=== PATIENT | female | born 1970 | race Caucasian/White ===

== ENCOUNTER → 2017-03-07 | Day surgery (SDC) | payer OTHER ==
[~2017-03-07] MED LIST: LIDOCAINE 2% INJ (20 MG/ML) 20 ML MDV ONE
--- NOTE | 2017-03-14 13:22 | WOMENS IMAGING REPORT ---
EXAM DESCRIPTION: U/S BREAST BX; U/S BREAST BX EACH ADDT'L; RIGHT DIG DX MAMMO NO CHG COMPLETED DATE/TIME: 03/07/2017 2:27 pm; 03/07/2017 2:19 pm REASON FOR STUDY: UNSPECIFIED LUMP; N63.11; SECOND BX SITE N63.11; N63.11 S/P RT US BX FOR CLIP PLAC EMENT N63.11 UNSPECIFIED LUMP IN THE RIGHT BREAST, UPPER OUTER CANDY COMPARISON: Outside mammograms and ultrasound 02/14/2017 TECHNIQUE: The procedure was discussed with the patient and the patient agreed to proceed. There ar e two areas of concern are identified at ultrasound, an ill-defined mass with acoustic absorption at the 9 to 10 o'clock position, 2 cm in size, and a second area of concern in the right breast 12 o'gerri ck position with ill-defined sonographic mass with acoustic absorption about 1 cm in size. Right breast 9 to 10 o'clock position: The patient was scanned and the area of interest in the right lower outer quadrant 9 to 10 o'clock po sition was localized. This correlates with the area of concern on prior imaging studies. This area w as targeted for ultrasound-guided core biopsy. After sterile skin prep and 2.5 mL local lidocaine 1% for skin and deep tissue anesthesia, a 14 gauge coaxial core biopsy needle was used to obtain several cores of tissue from the lesion. Under ultras ound guidance, a ribbon clip was placed in the areas sampled. There were no immediate post-procedure complications. Right breast 12 o'clock position: The patient was scanned and the area of interest in the 12 o'clock position 8 to 10 cm from the nippl e of the right breast was localized. This correlates with the area of concern on prior imaging studi es. This area was targeted for ultrasound-guided core biopsy. After sterile skin prep and 2.5 mL local lidocaine 1% for skin and deep tissue anesthesia, a 14 gauge coaxial core biopsy needle was used to obtain several cores of tissue from the lesion. Under ultras ound guidance, a ribbon clip was placed in the areas sampled. There were no immediate post-procedure complications. MAMMOGRAM: Post-procedure two view mammogram was acquired in the digital mammogram suite. The clips w ere in the expected location. No significant hematoma. Pathology yields a diagnosis of invasive ductal carcinoma at the right breast 9 to 10 o'clock positio n. Pathology also demonstrates invasive ductal carcinoma at the right breast 12 o'clock position. Pathology is concordant. LIMITATIONS: None. FINDINGS: Ultrasound guided breast biopsy as described above. POST PROCEDURE MAMMOGRAMS FOR MARKER PLACEMENT: Yes IMPRESSION: ULTRASOUND-GUIDED CORE BIOPSY OF THE RIGHT BREAST YIELDS A DIAGNOSIS OF INVASIVE DUCTAL CARCINOMA AT THE 9 TO 10 O'CLOCK LESION AND 12 O'CLOCK LESION BECAUSE THIS IS MULTIFOCAL DISEASE, AND THE PATIENT HAS HETEROGENEOUSLY DENSE BREASTS ON MAMMOGRAPHY, BILATERAL BREAST MRI WITH CONTRAST IS RECOMMENDED FOR FOLLOW-UP, TO EVALUATE THE BREASTS FOR ANY OTH ER FURTHER SUSPICIOUS LESIONS WHICH WOULD CHANGE OPERATIVE MANAGEMENT BI-RADS 6 Known biopsy-proven malignancy. Appropriate action should be taken. COMMENT: COMMUNICATION: THESE FINDINGS WERE DISCUSSED WITH THE PATIENT, 1000 HOURS 03/12/2017. SHE UNDERSTANDS THIS IS A MALIGNANT DIAGNOSIS Patient medication list reviewed: Yes- Quality ID# [id number]:Eligible professional attests to documenting i n the medical record they obtained, updated, or reviewed the patient's current medications. TECHNICAL DOCUMENTATION: JOB ID: [id number] [employer]- All Rights Reserved
== END ==
LOC: WI 13:00
PROVIDERS: ATTEND Surgery
PROC: 0HBT3ZX Excision of Right Breast, Percutaneous Approach, Diagnostic (ICD-10-PCS; principal; 2017-03-07)
DX: C50.511 Malignant neoplasm of lower-outer quadrant of right female breast (principal); Z17.0 Estrogen receptor positive status [ER+]
CPT/HCPCS: 88342 ×2; 88341 ×2; 88305 ×2; 19083; 19084; J3490

== ENCOUNTER → 2017-03-24 | Outpatient (CLI) | payer OTHER ==
--- NOTE | 2017-03-25 09:41 | RADIOLOGY REPORT (SQ) ---
EXAM DESCRIPTION: MRI BREAST BILAT W AND/OR WO COMPLETED DATE/TIME: 03/24/2017 9:05 am REASON FOR STUDY: MALIGNANT NEOPLASM OF UNSP SITE OF RIGHT FEMALE BREAST (C50.911) C50.911 MALIGNAN T NEOPLASM OF UNSP SITE OF RIGHT FEMALE AJRRET COMPARISON: Prior mammography and ultrasound PATHOLOGIC CORRELATION: Invasive ductal carcinoma x2 in the right breast. CONTRAST TYPE AND DOSE: 20 mL Prohance. RENAL FUNCTION: None required. The patient is less than 50 years old. TECHNIQUE: MR imaging performed with a dedicated breast coil. Pre contrast T1 and T2 weighted images . Pre contrast and post contrast enhanced T1 weighted images with fat saturation. Subtraction images, 3D thick and thin MIPS, and kinetic analysis performed on an independent workstat ion. (DigiFit workstation) Magnet strength: 1.5 T LIMITATIONS: None. FINDINGS: BREAST DENSITY: c. The breasts are heterogeneously dense, which may obscure small masses. BACKGROUND PARENCHYMAL ENHANCEMENT:Marked. RIGHT BREAST: 1.6 x 1.5 x 1.8 cm mass 9 o'clock in the right breast and 6 mm from the chest wall. He terogeneous enhancement pattern. Known invasive ductal carcinoma. 9.3 x 7.7 by 11 mm mass at 11 o'c lock. Known invasive ductal carcinoma. No clumped, regional/segmental ductal enhancement. CHEST WALL: Normal tissue planes. No abnormal internal mammary nodes. AXILLA: Normal axillary and retro-pectoral nodes. LEFT BREAST:No enhancing or suspicious masses. No clumped, regional/segmental ductal enhancement. CHEST WALL: Normal tissue planes. No abnormal internal mammary nodes. AXILLA: Normal axillary and retro-pectoral nodes. OTHER:No identified liver, bone, or lung lesions. No other significant incidental findings. IMPRESSION: 2 known malignancies in the right breast. No additional suspicious findings. BIRAD: RIGHT BREAST: 6 Known biopsy-proven malignancy. Appropriate action should be taken. LEFT BREAST: 1 Negative. RECOMMENDATION: RECOMMENDED FOLLOW-UP: Per referring physician. TECHNICAL DOCUMENTATION: JOB ID: [id number] [employer]- All Rights Reserved
== END ==
LOC: RAD 07:20
PROVIDERS: ATTEND Surgery
DX: C50.911 Malignant neoplasm of unspecified site of right female breast (principal)
CPT/HCPCS: 82565; A9576; C8906; 77059

== ENCOUNTER 2017-04-01 07:56 | Day surgery (SDC) | payer OTHER ==
[2017-03-25 12:13] LABS: HEMATOCRIT 41.5 % (36.0-47.0); HEMOGLOBIN 14.1 g/dL (12.0-15.5); MEAN CORPUSCULAR HEMOGLOBIN 30.9 pg (27.0-33.4); MEAN CORPUSCULAR VOLUME 91 fl (80-97); PLATELET COUNT 263 10^3/uL (150-450); RED BLOOD COUNT 4.57 10^6/uL (3.72-5.28); RED CELL DISTRIBUTION WIDTH 13.1 % (11.5-14.0); WHITE BLOOD COUNT 6.6 10^3/uL (4.0-10.5)
[2017-03-25 12:37] LABS: ANION GAP 14 (5-19); BLOOD UREA NITROGEN 9 mg/dL (7-20); CALCIUM 10.4 mg/dL (8.4-10.2); CARBON DIOXIDE 30 mmol/L (22-30); CHLORIDE 99 mmol/L (98-107); GLUCOSE 98 mg/dL (75-110); POTASSIUM 3.4 mmol/L (3.6-5.0); SODIUM 143.3 mmol/L (137-145)
--- NOTE | 2017-03-25 13:07 | RADIOLOGY REPORT (SQ) ---
EXAM DESCRIPTION: CHEST PA/LATERAL COMPLETED DATE/TIME: 03/25/2017 11:57 am REASON FOR STUDY: PRE-OP COMPARISON: None. EXAM PARAMETERS: NUMBER OF VIEWS: two views TECHNIQUE: Digital Frontal and Lateral radiographic views of the chest acquired. RADIATION DOSE: NA LIMITATIONS: Slightly rotated towards the JACKSON position FINDINGS: LUNGS AND PLEURA: No opacities, masses or pneumothorax. No pleural effusion. MEDIASTINUM AND HILAR STRUCTURES: No masses or contour abnormalities. HEART AND VASCULAR STRUCTURES: Heart normal size. No evidence for failure. BONES: No acute findings. HARDWARE: None in the chest. OTHER: No other significant finding. IMPRESSION: NO SIGNIFICANT RADIOGRAPHIC FINDING IN THE CHEST. TECHNICAL DOCUMENTATION: JOB ID: [id number] [employer]- All Rights Reserved
[~2017-04-01 07:56] MED LIST changes: +LACTATED RINGERS 1000 ML IV PRN; +LIDOCAINE 0.5% INJ-PF (5 MG/ML) 50 ML SDV SUBCUT PRN; -LIDOCAINE 2% INJ (20 MG/ML) 20 ML MDV ONE; +LIDOCAINE 4% TRANSPARENT DRESSING 5 GM KIT TP PRN; +VANCOMYCIN HCL 1,000 MG in DEXTROSE 5%-WATER 250 ML IV PRN
[2017-04-01] MEDS ORDERED: ONDANSETRON HCL INJ/PF 4 MG/2 ML SDV ONE (08:22)
[2017-04-01] MEDS ORDERED: GLYCOPYRROLATE INJ 0.4 MG/2 ML VIAL ONE (08:22)
[2017-04-01] MEDS ORDERED: DEXAMETHASONE SOD PHOSPHATE INJ 4 MG/1 ML VIAL ONE (08:22)
[2017-04-01] MEDS ORDERED: LIDOCAINE 2% INJ-PF (20 MG/ML) 2 ML AMPUL ONE (08:22)
[2017-04-01] MEDS ORDERED: SUCCINYLCHOLINE CHLORIDE INJ 200 MG/10 ML VIAL ONE (08:22)
[2017-04-01] MEDS ORDERED: METHYLENE BLUE 50 MG/10 ML AMPULE ONE (10:35)
[2017-04-01] MEDS ORDERED: FENTANYL CITRATE INJ/PF 100 MCG/2 ML AMPUL ONE ×3 (12:16→12:17)
[2017-04-01] MEDS ORDERED: PROPOFOL INJ 200 MG/20 ML VIAL IV ONE (12:17)
[2017-04-01] MEDS ORDERED: MIDAZOLAM 2 MG/2 ML INJ ONE (12:17)
[2017-04-01] MEDS ORDERED: ACETAMINOPHEN 100 ML IV ONE (12:18)
[2017-04-01] MEDS ORDERED: MORPHINE SULFATE 10 MG/ML INJ ONE (12:18)
--- NOTE | 2017-04-01 12:49 | RADIOLOGY REPORT (SQ) ---
EXAM DESCRIPTION: NM LYMPHATICS/LYMPH GLANDS COMPLETED DATE/TIME: 04/01/2017 10:15 am REASON FOR STUDY: SENTINAL MAPPING OF RT BREAST C50.911 MALIGNANT NEOPLASM OF UNSP SITE OF RIGHT FE MALE JARRET COMPARISON: Ultrasound-guided core biopsy 03/07/2017, Breast MRI 03/24/2017 RADIONUCLIDE AND DOSE: 564 microcuries TC-[id number] - [employer]. The route of agent administration: Subcutaneous in the skin. TECHNIQUE: The skin of the right breast was prepped in sterile fashion. The radiopharmaceutical was administered in equally divided doses in the periareolar breast. LIMITATIONS: None. FINDINGS: Images demonstrate activity at the injection site. There is migration of activity towards the sentinel node in the right axilla IMPRESSION: ADMINISTRATION OF RADIOPHARMACEUTICAL FOR SENTINEL LYMPH NODE EVALUATION. TECHNICAL DOCUMENTATION: JOB ID: [id number] [employer]- All Rights Reserved
[2017-04-01] MEDS ORDERED: FENTANYL CITRATE INJ/PF 100 MCG/2 ML AMPUL IV PRN ×3 (13:10)
[2017-04-01] MEDS ORDERED: PROMETHAZINE HCL INJ 25 MG/1 ML VIAL IV PRN (13:10)
[2017-04-01] MEDS ORDERED: DIPHENHYDRAMINE HCL 50 MG/ML VIAL IV PRN (13:10)
[2017-04-01] MEDS ORDERED: NORMAL SALINE 1000 ML 1,000 ML IV PRN (15:58)
[2017-04-01] MEDS ORDERED: MORPHINE SULFATE 10 MG/ML INJ IV PRN (15:58)
[2017-04-01] MEDS ORDERED: ONDANSETRON HCL INJ/PF 4 MG/2 ML SDV IV PRN (15:58)
--- NOTE | 2017-04-01 15:58 | Operative Report ---
Operative Report DATE OF SURGERY: 04/01/17 PREOPERATIVE DIAGNOSIS: Right breast cancer POSTOPERATIVE DIAGNOSIS: Right breast cancer OPERATION: Right mastectomy. Injection of blue dye for identification of sentinel node. Right axillary sentinel node biopsy. SURGEON: CARINA MATSON ANESTHESIA: GA TISSUE REMOVED OR ALTERED: Right breast. Right axillary sentinel nodes. COMPLICATIONS: None ESTIMATED BLOOD LOSS: 100 cc INTRAOPERATIVE FINDINGS: 2 enlarged nodes in the right axilla. 1 of them hot and blue. 2 very small semi-hot but not blue nodes. touch prep and frozen section of the 2 enlarged nodes were negative for malignancy. PROCEDURE: Informed consent was obtained. Patient was brought to the operating room placed on the operating table in the supine position. After satisfactory induction of general anesthesia, her right breast was prepped and blue dye was injected at the periareolar region and breast massage was performed for 5 minutes. Her right breast and axilla were prepped and draped in the usual sterile fashion. A ellipse of skin encompassing the nipple areolar complex was taken along with the underlying breast. Superior inferior and lateral flaps were raised and the breast was taken off the pectoralis along with the pectoralis fascia. The breast was passed off the table. It was marked with a short stitch marking superior border and long stitch marking the lateral border. At the level 1 axillary node location there was a enlarged blue and hot node. This node was resected. Adjacent to this node there were 2 very small nodes which were semi-hot. The hot node was 35,592 in vivo count with a ex vivo count of 39,004. The semi-hot nodes demonstrated an ex vivo count of 267 and 94. These semi-hot nodes were not blue. Palpation of the axilla revealed one enlarged node that was not hot and not blue this enlarged node was resected and submitted to pathology as well. The background count after resection of these nodes was negligible. The 2 enlarged nodes were evaluated with touch prep and frozen section and were negative for malignancy. With this finding, operation was terminated. Hemostasis appeared excellent. The operative field was irrigated with sterile water. 2 Elian-Morrow was placed and sutured in place. Wound was closed with deep dermal interrupted Vicryl sutures followed by running subcuticular Prolene pullout suture. Patient tolerated procedure well with no apparent complications and was taken to the recovery in stable condition.
--- NOTE | 2017-04-01 18:26 | PDOC PROGRESS REPORT ---
Subjective Progress Note for:: 04/01/17 Subjective:: Feels well. Reason For Visit: RIGHT BREAST CANCER Physical Exam Vital Signs: Temp Pulse Resp BP Pulse Ox 97.7 F 91 10 L 106/69 98 04/01/17 16:41 04/01/17 16:41 04/01/17 16:41 04/01/17 16:41 04/01/17 16:41 Intake & Output 03/31/17 04/01/17 04/02/17 06:59 06:59 06:59 Intake Total 3150 Output Total 1295 Balance 1855 Weight 65.77 kg General appearance: PRESENT: no acute distress, cooperative Respiratory exam: PRESENT: clear to auscultation anette, other - Mastectomy site is pink with no swelling. Drain output is blood-tinged. Cardiovascular exam: PRESENT: RRR Results Laboratory Results: 03/25/17 11:28 03/25/17 11:28 Impressions: Chest X-Ray 03/25/17 11:38 IMPRESSION: NO SIGNIFICANT RADIOGRAPHIC FINDING IN THE CHEST. Lymph Scan Nuclear Medicine 04/01/17 00:00 IMPRESSION: ADMINISTRATION OF RADIOPHARMACEUTICAL FOR SENTINEL LYMPH NODE EVALUATION. Assessment & Plan - Diagnosis (1) Breast cancer, right Is this a current diagnosis for this admission?: Yes Plan: Status post mastectomy and sentinel node biopsy. Patient looks good. Will likely discharge patient home in the morning.
--- NOTE | 2017-04-01 20:21 | EKG REPORT ---
SEVERITY:- NORMAL ECG - SINUS RHYTHM : Confirmed by: Miguel Angel Morrell 01-Apr-2017 20:20:11
[2017-04-02] MEDS: OXYCODONE-ACETAMINOPHEN 5-325 MG TABLET PO PRN ×2 (00:21→07:30)
--- NOTE | 2017-04-02 09:16 | PDOC PROGRESS REPORT ---
Subjective Progress Note for:: 04/02/17 Subjective:: Feels well. Reason For Visit: RIGHT BREAST CANCER Physical Exam Vital Signs: Temp Pulse Resp BP Pulse Ox 98.1 F 71 14 91/56 L 98 04/02/17 08:19 04/02/17 08:19 04/02/17 08:19 04/02/17 08:19 04/02/17 08:19 Intake & Output 04/01/17 04/02/17 04/03/17 06:59 06:59 06:59 Intake Total 4560 Output Total 2615 630 Balance 1945 -630 Weight 64.8 kg General appearance: PRESENT: no acute distress, cooperative Respiratory exam: PRESENT: clear to auscultation anette, other - Mastectomy site is pink with no swelling. Drain output is serosanguineous. Cardiovascular exam: PRESENT: RRR Results Laboratory Results: 03/25/17 11:28 03/25/17 11:28 Impressions: Chest X-Ray 03/25/17 11:38 IMPRESSION: NO SIGNIFICANT RADIOGRAPHIC FINDING IN THE CHEST. Lymph Scan Nuclear Medicine 04/01/17 00:00 IMPRESSION: ADMINISTRATION OF RADIOPHARMACEUTICAL FOR SENTINEL LYMPH NODE EVALUATION. Assessment & Plan - Diagnosis (1) Breast cancer, right Is this a current diagnosis for this admission?: Yes Plan: Status post mastectomy and sentinel node biopsy. Patient looks good. DC home
--- NOTE | 2017-04-02 09:26 | DISCHARGE SUMMARY E ---
Discharge Summary NAME: DHARMESH ELISE : 1970 AGE: 46Y ADMITTED: 04/01/2017 DISCHARGED: 04/02/2017 DISCHARGE DIAGNOSIS: RIGHT BREAST CANCER. PROCEDURE PERFORMED DURING HOSPITALIZATION: Right-sided mastectomy, injection of blue dye for identification of sentinel node; right axillary sentinel node biopsy performed by Dr. Raleigh Matson on April 01, 2017. HOSPITAL COURSE: Patient underwent the above mentioned surgery. She did well postoperatively. DISPOSITION: She has now been discharged to home in good condition. DIET: She may follow a regular diet. FOLLOWUP: 1. She will follow up with me next week. 2. She is encouraged to stay active at home. 3. Drain care instructions were given to the patient. 4. She may resume all of her home medications. 5. Additional medication is Percocet 1 q.4 h. p.r.n. pain. DICTATING PHYSICIAN: RALEIGH MATSON M.D. [id number] PHY#: [id number] ID: [id number] JOB#: [id number] ACCT: [id number] cc:RALEIGH MATSON M.D. >
[2017-04-02] MEDS ORDERED: TRIAMTERENE/HYDROCHLOROTHIAZID 75-50 MG TABLET PO SCH ×2 (10:00)
[2017-04-02 10:10] VITALS: BP 107/64
--- NOTE | 2017-04-04 17:31 | RADIOLOGY REPORT (SQ) ---
EXAM DESCRIPTION: BREAST SPECIMEN COMPLETED DATE/TIME: 04/03/2017 11:33 am REASON FOR STUDY: MALIGNANT NEOSPLASM RIGHT BREAST C50.911 MALIGNANT NEOPLASM OF UNSP SITE OF RIGHT FEMALE JARRET COMPARISON: Lymphoscintigraphy 04/01/2017 Mammograms 03/07/2017 Ultrasound-guided breast biopsy 03/07/2017 TECHNIQUE: Specimen radiograph from breast procedure performed in the operating room. LIMITATIONS: None. FINDINGS: Specimen radiograph from breast procedure performed in the operating room. Please see procedure note for details and final pathology. IMPRESSION: Specimen radiograph. TECHNICAL DOCUMENTATION: JOB ID: [id number]
== END 2017-04-02 11:00 | disposition home or self-care (01) ==
LOC: OROUT 07:56 → 2N 17:00 → OROUT 04-02 11:00
PROVIDERS: ATTEND Surgery
PROC: 07B50ZX Excision of Right Axillary Lymphatic, Open Approach, Diagnostic (ICD-10-PCS; 2017-04-01)
PROC: 0HTT0ZZ Resection of Right Breast, Open Approach (ICD-10-PCS; principal; 2017-04-01 11:30)
DX: C50.811 Malignant neoplasm of overlapping sites of right female breast (principal); Z17.0 Estrogen receptor positive status [ER+]; I10 Essential (primary) hypertension; E07.9 Disorder of thyroid, unspecified; Z87.442 Personal history of urinary calculi; Z79.899 Other long term (current) drug therapy; Z88.2 Allergy status to sulfonamides; Z88.0 Allergy status to penicillin; Z88.5 Allergy status to narcotic agent
CPT/HCPCS: 36415; 85027; 81025; 80048; 88342 ×2; 88307 ×2; 71046; 78195; 93005; 93010; 19307; A9520; J2250; J1100; J3010; J3490 ×3; J2270; J0330; J2405; J7060; J7030; J2704; J3370; J0131; Q9968; 1610

== ENCOUNTER → 2020-02-21 | Outpatient (CLI) | payer OTHER ==
--- NOTE | 2020-02-21 15:12 | WOMENS IMAGING REPORT ---
EXAM DESCRIPTION: 3D SCREENING MAMMO LEFT IMAGES COMPLETED DATE/TIME: 02/21/2020 1:12 pm REASON FOR STUDY: ROUTINE SCREENING MAMMOGRAM Z12.31 Z12.31 ENCNTR SCREEN MAMMOGRAM FOR MALIGNANT N EOPLASM OF MAXI COMPARISON: No previous left mammogram is available for comparison. Right diagnostic mammogram 02/15. Bilateral breast MRI, 03/24/2017. EXAM PARAMETERS: Standard craniocaudal and mediolateral oblique views of the breast recorded using d igital acquisition and breast tomosynthesis. Read with the assistance of CAD. .[facility] - R2 Associate Professor Of Psychology Version 9.2 LIMITATIONS: None. FINDINGS: BREAST LATERALITY: left MASSES: No suspicious masses. CALCIFICATIONS: No new or suspicious calcifications. ARCHITECTURAL DISTORTION: There is architectural distortion in the upper outer left breast approximat kate 1 o'clock position 3- 4 cm from the nipple. ASYMMETRY: None noted. OTHER: No other significant finding. IMPRESSION: Architectural distortion upper outer left breast. Further evaluation diagnostic mammogr am and ultrasound recommended. 0 INCOMPLETE: NEEDS ADDITIONAL IMAGING EVALUATION AND/OR PRIOR MAMMOGRAMS FOR COMPARISON. BREAST DENSITY: b. There are scattered areas of fibroglandular density. BIRAD: ASSESSMENT: 0 Incomplete: Needs Additional Imaging Evaluation and/or prior Mammograms for C omparison. RECOMMENDATION: RECOMMENDED FOLLOW-UP: Left breast diagnostic mammogram and ultrasound. The patient will be contacted for additional imaging. COMMENT: The patient has been notified of the results by letter per SA requirements. Additional no tification policies are in place for contacting patient with suspicious or incomplete findings. Quality ID #[id number]: The [employer] recommends an annual screening mammogram for women aged 40 years or over. This facility utilizes a reminder system to ensure that all patients receive reminder letters, and/or direct phone calls for appointments. This includes reminders for routine scr eening mammograms, diagnostic mammograms, or other Breast Imaging Interventions when appropriate. Th is patient will be placed in the appropriate reminder system. TECHNICAL DOCUMENTATION: FINDING NUMBER: (1) ASSESSMENT: (1) JOB ID: [id number] 2010 [employer]- All Rights Reserved Reading location - IP/workstation name: [id number]
== END ==
LOC: WI 14:11
PROVIDERS: ATTEND Nurse Practitioner Family
DX: Z12.31 Encounter for screening mammogram for malignant neoplasm of breast (principal); N64.89 Other specified disorders of breast

== ENCOUNTER → 2020-03-01 | Outpatient (CLI) | payer OTHER ==
--- NOTE | 2020-03-01 10:52 | WOMENS IMAGING REPORT ---
EXAM DESCRIPTION: 3D DX MAMMO LEFT UNILAT; U/S BREAST UNILAT LIMITED IMAGES COMPLETED DATE/TIME: 03/01/2020 9:21 am; 03/01/2020 9:52 am REASON FOR STUDY: R92.2 INCONCLUSIVE MAMMOGRAM; LT BREAST R92.2 R92.2 INCONCLUSIVE MAMMOGRAM COMPARISON: Right breast imaging from 2017 Left breast screening mammography/tomosynthesis 02/21/2020 EXAM PARAMETERS: Cone compression craniocaudal and mediolateral oblique images of the breast recorde d using digital acquisition and breast tomosynthesis. Additional left breast 90 mediolateral view tomosynthesis. Left breast ultrasound was performed of the 12 to 1 o'clock position about 5 to 6 cm from the nipple. Read with the assistance of CAD. .[facility] - R2 Drawing Kiln Operator Version 9.2 LIMITATIONS: None. FINDINGS: BREAST LATERALITY: Left MASSES: No suspicious masses. CALCIFICATIONS: No new or suspicious calcifications. ARCHITECTURAL DISTORTION: There is persistent questionable architectural distortion of the 1 to 2 o'c lock position left breast about 5 cm from the nipple. Focal asymmetrically dense breast tissue is pr esent in this area ASYMMETRY: None noted. OTHER: No other significant findings. Left breast ultrasound was performed. Static and cine images were reviewed. In the left breast 1 to 2 o'clock position, in the area of breast parenchymal texture changes present which could correlate with the dense tissue and possible architectural distortion. Findings are worrisome for subtle signs of malignancy. Ultrasound-guided core biopsy with post biopsy clip placement and follow-up two-view mammogram recommended. IMPRESSION: Findings worrisome for malignancy left breast about 5 cm from the nipple at the 1 to 2 o 'clock position. Textural changes identified at ultrasound. Biopsy of this area under ultrasound is recommended with post biopsy clip placement and follow-up immediate post procedure two-view mammogra m. BREAST DENSITY: b. There are scattered areas of fibroglandular density. BIRAD: ASSESSMENT: 4 Suspicious. Biopsy should be performed in the absence of clinical contra-indic ation. RECOMMENDATION: RECOMMENDED FOLLOW UP: Left breast ultrasound-guided core biopsy with post biopsy cl ip placement and follow-up two-view mammogram, upper outer quadrant 1 to 2 o'clock position about 5 c m from the nipple SPECIFIC INTERVENTION/IMAGING/CONSULTATION RECOMMENDED:Ultrasound-guided left breast core biopsy COMMUNICATION:Findings were not discussed with the patient at the time of service COMMENT: The patient has been notified of the results by letter per SA requirements. Additional no tification policies are in place for contacting patient with suspicious or incomplete findings. Quality ID #225: The [employer] recommends an annual screening mammogram for women aged 40 years or over. This facility utilizes a reminder system to ensure that all patients receive reminder letters, and/or direct phone calls for appointments. This includes reminders for routine scr eening mammograms, diagnostic mammograms, or other Breast Imaging Interventions when appropriate. Th is patient will be placed in the appropriate reminder system. TECHNICAL DOCUMENTATION: FINDING NUMBER: (1) ASSESSMENT: (1) JOB ID: [id number] 2010 [employer]- All Rights Reserved Reading location - IP/workstation name: [email or web address]
== END ==
LOC: WI 08:26
PROVIDERS: ATTEND Nurse Practitioner Family
DX: N64.89 Other specified disorders of breast (principal)
CPT/HCPCS: 76642; 77065

== ENCOUNTER → 2020-03-22 | Outpatient (CLI) | payer OTHER ==
--- NOTE | 2020-03-22 14:50 | WOMENS IMAGING REPORT ---
EXAM DESCRIPTION: U/S BREAST UNILAT LIMITED IMAGES COMPLETED DATE/TIME: 03/22/2020 2:12 pm REASON FOR STUDY: N63.20 UNSPECFIED LUMP IN THE LEFT BREAST N63.20 UNSPECIFIED LUMP IN THE LEFT MAXI AST, UNSPECIFIED QUAD COMPARISON: 03/01/2020, 02/21/2020, 03/24/2017, 03/07/2017 TECHNIQUE: Real-time and static grayscale imaging performed of the left breast targeted to the area of clinical/mammographic concern. Selected color Doppler images recorded. LIMITATIONS: None. FINDINGS: MASS: Patient presented for ultrasound-guided biopsy ; real-time evaluation of the left up per outer quadrant at the 1 to 2 o'clock position was performed by both the jewelry coater and the radio logist. Abnormal findings demonstrated on diagnostic ultrasound dated 03/01/2020 were not able to be reproduced for targeted biopsy. OTHER: 02/21/2020 screening mammogram, 03/01/2020 diagnostic mammogram, and 03/01/2020 diagnostic ultr asound images were reviewed with the patient and discussed in light of her personal history of breast cancer. IMPRESSION: Suspicious findings were not able to be reproduced on today's examination. BIRAD: 0 Incomplete: Needs additional imaging evaluation. While stereotactic biopsy remains an opti on, given the location of this finding and the presence of breast implants, recommend breast MRI for improved characterization. RECOMMENDATION: RECOMMENDED FOLLOW-UP: The patient is aware of the options and recommendations and w ill follow-up with her provider. COMMENT: The [employer] ([employer]) has developed recommendations for screening MRI of the breasts in certain patient populations, to be used in conjunction with mammography. Breast MRI s urveillance may be appropriate for women with more than 20% lifetime risk of developing breast cancer as determined by genetic testing, significant family history of the disease, or history of mantle r adiation for Hodgkins Disease. ACR Practice Guidelines 2007. TECHNICAL DOCUMENTATION: JOB ID: [id number] 2010 [employer] All Rights Reserved Reading location - IP/workstation name: [email or web address]
== END ==
LOC: WI 13:00 → EDSTATUS 14:16
PROVIDERS: ATTEND Surgery
DX: N63.20 Unspecified lump in the left breast, unspecified quadrant (principal)
CPT/HCPCS: 76642

== ENCOUNTER → 2020-04-05 | Outpatient (CLI) | payer OTHER | LOC: RAD 08:31 | PROVIDERS: ATTEND Surgery | DX: C77.1 Secondary and unspecified malignant neoplasm of intrathoracic lymph nodes (principal); C78.2 Secondary malignant neoplasm of pleura; Z85.3 Personal history of malignant neoplasm of breast; J43.8 Other emphysema; K80.20 Calculus of gallbladder without cholecystitis without obstruction; K57.30 Diverticulosis of large intestine without perforation or abscess without bleeding | CPT/HCPCS: 82565; 77049; A9576 ==